=== PATIENT | male | born 1975 | race Caucasian/White ===

== ENCOUNTER 2016-11-08 03:34 | Emergency (ER) | payer SELFPAY ==
[~2016-11-08] VITALS: Ht 185.4 cm; Wt 90.7 kg
[2016-11-08 03:43] VITALS: BP 135/81
[2016-11-08] MEDS ORDERED: CEPHALEXIN MONOHYDRATE 500 MG CAPSULE PO ONE (04:24)
[2016-11-08] MEDS ORDERED: TDAP [DIPH/PERTUSSIS/TET] 0.5 ML VIAL IM ONE (04:24)
[2016-11-08] MEDS ORDERED: BACI/NEOM/POLY B OINT PKT 1 UDPKT PACKET ONE (04:25)
[2016-11-08] MEDS: TDAP [DIPH/PERTUSSIS/TET] 0.5 ML VIAL IM ONE (04:41)
[2016-11-08] MEDS: LIDOCAINE 1%-EPI 1:100,000 20 ML VIAL TP ONE (04:42)
[2016-11-08] MEDS: CEPHALEXIN MONOHYDRATE 500 MG CAPSULE PO ONE (04:42)
[2016-11-08] MEDS: SODIUM BICARBONATE 5 ML VIAL TP ONE (04:42)
[2016-11-08] MEDS: BACI/NEOM/POLY B OINT PKT 1 UDPKT PACKET TP ONE (04:43)
== END 2016-11-08 04:45 | disposition home or self-care (01) ==
LOC: ER 03:34
DX: S81.811A Laceration without foreign body, right lower leg, initial encounter (principal); Z23 Encounter for immunization; W26.8XXA Contact with other sharp object(s), not elsewhere classified, initial encounter; Y93.89 Activity, other specified; Y92.89 Other specified places as the place of occurrence of the external cause; Y99.9 Unspecified external cause status
CPT/HCPCS: 12002; 90471; 90715; 99283; A4606; Z7610